=== PATIENT | female | born 1980 | race Caucasian/White ===

== ENCOUNTER 2018-04-24 16:31 | Emergency (ER) | payer OTHER ==
[~2018-04-24] VITALS: Ht 170.2 cm; Wt 109.0 kg
[2018-04-24 16:36] VITALS: PULSE 100; RESP 18; TEMP 98.2; O2SAT 100
[2018-04-24] MEDS ORDERED: HYDR25TA5 PO (17:09)
--- NOTE | 2018-04-24 17:09 | PD ---
HPI Chief Complaint: Cold / Flu Symptoms Time Seen by Provider: 17:05 Travel History International Travel<30 days: No Contact w/Intl Traveler<30days: No Traveled to known affect area: No History of Present Illness HPI 37-year-old female presents emergency department for evaluation of chest pain and shortness of breath since 6 AM this morning. Patient states she has had one bout of coughing but otherwise has had no cough throughout the day. She reports a tightness and moderate pain with inspiration. She denies any fever or chills. The pain does not radiate anywhere. She has no nausea, vomiting, lightheadedness, diaphoresis. Patient denies any history of PE or DVT. She has not had any long travel. She is not currently on control. She does not smoke tobacco cigarettes currently. PFS Past Medical History Cancer: Yes (THROID CANCER ) Hypertension: Yes ?: Not Past Surgical History Section: Yes (X2) Other Surgery: Yes (THYROIDECTOMY) Social History Alcohol Use: Yes (OCCASSIONALLY) Tobacco Use: No Substance Use: No Allergies-Medications (Allergen,Severity, Reaction): Coded Allergies: lisinopril (Verified Allergy, Severe, Anaphylaxis, 04/24/18) Reported Meds & Prescriptions Reported Meds & Active Scripts Active Reported Cytomel (Liothyronine Sodium) 25 Mcg Tab 5 Mcg PO BID Synthroid (Levothyroxine Sodium) 200 Mcg Tab 200 Mcg PO DAILY Hydrochlorothiazide 25 Mg Tab 25 Mg PO DAILY Review of Systems Except as stated in HPI: all other systems reviewed are Neg Physical Exam Narrative GENERAL: Well-nourished female patient, appears in no acute distress. SKIN: Focused skin assessment warm/dry. HEAD: Atraumatic. Normocephalic. EYES: Pupils equal and round. No scleral icterus. No injection or drainage. ENT: No nasal bleeding or discharge. Mucous membranes pink and moist. NECK: Trachea midline. No JVD. CARDIOVASCULAR: Elevated rate and rhythm. No murmur appreciated. RESPIRATORY: No accessory muscle use. Diminished with inspiratory and expiratory wheeze to auscultation. Breath sounds equal bilaterally. GASTROINTESTINAL: Abdomen soft, non-tender, nondistended. Hepatic and splenic margins not palpable. MUSCULOSKELETAL: No obvious deformities. No clubbing. No cyanosis. No edema. NEUROLOGICAL: Awake and alert. No obvious cranial nerve deficits. Motor grossly within normal limits. Normal speech. PSYCHIATRIC: Appropriate mood and affect; insight and judgment normal. Data Data Last Documented VS Vital Signs Date Time Temp Pulse Resp B/P (MAP) Pulse Ox O2 Delivery O2 Flow Rate FiO2 04/24/18 19:25 04/24/18 18:00 97.8 83 20 99 Room Air Orders Orders Electrocardiogram (04/24/18 ) Basic Metabolic Panel (Bmp) (04/24/18 17:08) Ckmb (Isoenzyme) Profile (04/24/18 17:08) Complete Blood Count With Diff (04/24/18 17:08) D-Dimer (04/24/18 17:08) Magnesium (Mg) (04/24/18 17:08) Prothrombin Time / Inr (Pt) (04/24/18 17:08) Act Partial Throm Time (Ptt) (04/24/18 17:08) Troponin I (04/24/18 17:08) Ecg Monitoring (04/24/18 17:08) Bilateral Bp Monitoring (04/24/18 17:08) Iv Access Insert/Monitor (04/24/18 17:08) Oximetry (04/24/18 17:08) Oxygen Administration (04/24/18 17:08) Aspirin Chew (Aspirin Chew) (04/24/18 17:15) Sodium Chloride 0.9% Flush (Ns Flush) (04/24/18 17:15) Chest, Pa & Lat (04/24/18 17:08) Methylprednisolone So Succ Inj (Solumedr (04/24/18 17:15) Albuterol-Ipratropium Neb (Duoneb Neb) (04/24/18 17:15) Ct Pulmonary Angiogram (04/24/18 ) CKMB (04/24/18 17:11) CKMB% (04/24/18 17:11) Iohexol 350 Inj (Omnipaque 350 Inj) (04/24/18 18:50) Ed Discharge Order (04/24/18 19:23) Labs Laboratory Tests Test 04/24/18 17:11 White Blood Count 10.3 TH/MM3 Red Blood Count 4.56 MIL/MM3 Hemoglobin 12.8 GM/DL Hematocrit 37.8 % Mean Corpuscular Volume 83.0 FL Mean Corpuscular Hemoglobin 28.1 PG Mean Corpuscular Hemoglobin Concent 33.8 % Red Cell Distribution Width 14.7 % Platelet Count 390 TH/MM3 Mean Platelet Volume 8.4 FL Neutrophils (%) (Auto) 69.2 % Lymphocytes (%) (Auto) 20.3 % Monocytes (%) (Auto) 7.4 % Eosinophils (%) (Auto) 2.5 % Basophils (%) (Auto) 0.6 % Neutrophils # (Auto) 7.1 TH/MM3 Lymphocytes # (Auto) 2.1 TH/MM3 Monocytes # (Auto) 0.8 TH/MM3 Eosinophils # (Auto) 0.3 TH/MM3 Basophils # (Auto) 0.1 TH/MM3 CBC Comment DIFF FINAL Differential Comment Prothrombin Time 9.8 SEC Prothromb Time International Ratio 1.0 RATIO Activated Partial Thromboplast Time 27.8 SEC D-Dimer Quantitative (PE/DVT) 0.67 MG/L FEU Blood Urea Nitrogen 11 MG/DL Creatinine 1.05 MG/DL Random Glucose 90 MG/DL Calcium Level 8.5 MG/DL Magnesium Level 2.1 MG/DL Sodium Level 138 MEQ/L Potassium Level 3.2 MEQ/L Chloride Level 103 MEQ/L Carbon Dioxide Level 23.3 MEQ/L Anion Gap 12 MEQ/L Estimat Glomerular Filtration Rate 59 ML/MIN Total Creatine Kinase 101 U/L Creatine Kinase MB 0.8 NG/ML Troponin I LESS THAN 0.02 NG/ML MDM Medical Decision Making Medical Screen Exam Complete: Yes Emergency Medical Condition: Yes Medical Record Reviewed: Yes Differential Diagnosis Bronchitis versus esophagitis versus esophageal spasm versus pneumonia versus PE Narrative Course 37-year-old female presents emergency department for evaluation. Patient appears without distress. Vital signs are stable. Patient does have inspiratory and expiratory wheeze. She will be given IV Solu-Medrol and DuoNeb treatment. Laboratory Tests Test 04/24/18 17:11 White Blood Count 10.3 TH/MM3 Red Blood Count 4.56 MIL/MM3 Hemoglobin 12.8 GM/DL Hematocrit 37.8 % Mean Corpuscular Volume 83.0 FL Mean Corpuscular Hemoglobin 28.1 PG Mean Corpuscular Hemoglobin Concent 33.8 % Red Cell Distribution Width 14.7 % Platelet Count 390 TH/MM3 Mean Platelet Volume 8.4 FL Neutrophils (%) (Auto) 69.2 % Lymphocytes (%) (Auto) 20.3 % Monocytes (%) (Auto) 7.4 % Eosinophils (%) (Auto) 2.5 % Basophils (%) (Auto) 0.6 % Neutrophils # (Auto) 7.1 TH/MM3 Lymphocytes # (Auto) 2.1 TH/MM3 Monocytes # (Auto) 0.8 TH/MM3 Eosinophils # (Auto) 0.3 TH/MM3 Basophils # (Auto) 0.1 TH/MM3 CBC Comment DIFF FINAL Differential Comment Prothrombin Time 9.8 SEC Prothromb Time International Ratio 1.0 RATIO Activated Partial Thromboplast Time 27.8 SEC D-Dimer Quantitative (PE/DVT) 0.67 MG/L FEU Blood Urea Nitrogen 11 MG/DL Creatinine 1.05 MG/DL Random Glucose 90 MG/DL Calcium Level 8.5 MG/DL Magnesium Level 2.1 MG/DL Sodium Level 138 MEQ/L Potassium Level 3.2 MEQ/L Chloride Level 103 MEQ/L Carbon Dioxide Level 23.3 MEQ/L Anion Gap 12 MEQ/L Estimat Glomerular Filtration Rate 59 ML/MIN Total Creatine Kinase 101 U/L Creatine Kinase MB 0.8 NG/ML Troponin I LESS THAN 0.02 NG/ML Patient's d-dimer is elevated. CT pulmonary angiogram is ordered. Last Impressions Chest X-Ray 04/24/18 1708 Signed Impressions: CONCLUSION: No active disease. CT Angiography 04/24/18 0000 Signed Impressions: CONCLUSION: 1. Negative for pulmonary embolus. No acute findings. Patient will be discharged home. She will be given short course of oral steroids and pro-air inhaler. She is encouraged to follow-up with primary care provider and return immediately with acute worsening symptoms. Diagnosis Primary Impression: Bronchitis Additional Impression: Costochondral pain Referrals: Primary Care Physician Patient Instructions: Acute Bronchitis (ED), General Instructions Departure Forms: Tests/Procedures, Work Release Enter return to work date: Apr 28, 2018 Additional Instructions: Humidified air may help to alleviate symptoms Follow-up with a primary care provider Return immediately with acute worsening symptoms Med/Other Pt SpecificInfo: Prescription(s) given Scripts Albuterol 8.5 GM Inh (Proair Hfa 8.5 GM Inh) 90 Mcg/Act Aer 2 PUFF INH Q4H Y for SHORTNESS OF BREATH, #1 INHALER 0 Refills 108 mcg/actuation Prov: Karely Alonso 04/24/18 Prednisone (Prednisone) 50 Mg Tab 50 MG PO DAILY for 5 Days, #5 TAB 0 Refills Prov: Karely Alonso 04/24/18 Azithromycin (Zithromax Z-Yair) 250 Mg Dspk 250 MG PO DIRECTED for Infection, #1 DSPK 0 Refills 500 MG (2 tabs) day 1, then 1 tab days 2-5. Prov: Karely Alonso 04/24/18 Disposition: 01 DISCHARGE HOME Condition: Stable Karely Alonso Apr 24, 2018 17:09
[2018-04-24] MEDS ORDERED: LEVO.2 PO (17:10)
[2018-04-24] MEDS ORDERED: LIOT25 PO (17:10)
[2018-04-24 17:13] VITALS: O2SAT 98
[2018-04-24] MEDS: RESP: ALBUTEROL 2.5 MG/IPRATROPIUM 0.5 MG NEB (SCH) INH (17:15)
[2018-04-24] MEDS ORDERED: SODIUM CHLORIDE 0.9% FLUSH 10 ML FLUSH IVF PRN (17:15)
[2018-04-24] MEDS ORDERED: methylPREDNISolone SOD SUCC 125 MG/2 ML VIAL IV PUSH ONE (17:15)
[2018-04-24] MEDS ORDERED: ASPIRIN 81 MG CHEW TAB PO ONE (17:15)
[2018-04-24 17:16] VITALS: BP_SYST 149; BP_SYST 165; BP_DIAS 83; BP_DIAS 96; PULSE 87; RESP 22; O2SAT 98
[2018-04-24 17:42] LABS: AUTOMATED NEUTROPHIL # 7.1 TH/MM3 (1.8-7.7); BASOPHIL # 0.1 TH/MM3 (0-0.2); BASOPHIL % 0.6 % (0.0-2.0); EOSINOPHIL # 0.3 TH/MM3 (0-0.4); EOSINOPHIL % 2.5 % (0.0-4.0); HEMATOCRIT 37.8 % (35.0-46.0); HEMOGLOBIN 12.8 GM/DL (11.6-15.3); LYMPH % 20.3 % (9.0-44.0); LYMPHOCYTE # 2.1 TH/MM3 (1.0-4.8); MEAN CORPUSCULAR HEMOGLOBIN 28.1 PG (27.0-34.0); MEAN CORPUSCULAR HGB CONC 33.8 % (32.0-36.0); MEAN PLATELET VOLUME 8.4 FL (7.0-11.0); MONO % 7.4 % (0.0-8.0); MONOCYTE # 0.8 TH/MM3 (0-0.9); NEUT % 69.2 % (16.0-70.0); PLATELET COUNT 390 TH/MM3 (150-450); RED BLOOD COUNT 4.56 MIL/MM3 (4.00-5.30); RED CELL DISTRIBUTION WIDTH 14.7 % (11.6-17.2); WHITE BLOOD COUNT 10.3 TH/MM3 (4.0-11.0)
[2018-04-24 17:53] LABS: D-DIMER 0.67 MG/L FEU (0.00-0.50); PROTHROMBIN TIME - PATIENT 9.8 SEC (9.8-11.6)
[2018-04-24 18:00] VITALS: BP 135/81; PULSE 83; RESP 20; TEMP 97.8; O2SAT 99
--- NOTE | 2018-04-24 18:10 | RADRPT ---
EXAM DATE: 04/24/2018 5:57 PM EDT AGE/SEX: 37 years / Female INDICATIONS: Chest tightness, shortness of breath starting today CLINICAL DATA: This is the patient's initial encounter. Patient reports that signs and symptoms have been present for 1 day and indicates a pain score of 0/10. MEDICAL/SURGICAL HISTORY: None. None. COMPARISON: No prior exams available for comparison. FINDINGS: PA and lateral views of the chest demonstrate the lungs to be symmetrically aerated without evidence of mass, infiltrate or effusion. The cardiomediastinal contours are unremarkable. Osseous structures are intact. CONCLUSION: No active disease. Electronically signed by: Alexander Olsen MD 04/24/2018 6:09 PM EDT
[2018-04-24 18:32] LABS: BICARBONATE 23.3 MEQ/L (21.0-32.0); BLOOD UREA NITROGEN 11 MG/DL (7-18); CALCIUM 8.5 MG/DL (8.5-10.1); CHLORIDE 103 MEQ/L (98-107); CREATININE 1.05 MG/DL (0.50-1.00); GLOMERULAR FILTRATION RATE 59 ML/MIN (>89); GLUCOSE,RANDOM 90 MG/DL (74-106); MAGNESIUM 2.1 MG/DL (1.5-2.5); SODIUM (NA) 138 MEQ/L (136-145)
[2018-04-24 18:37] LABS: TROPONIN I LESS THAN 0.02 NG/ML (0.02-0.05)
[2018-04-24] MEDS ORDERED: IOHEXOL 350 MG/ML 10 ML VIAL (for RAD DIAG) IVCONTRAST ONE (18:50)
--- NOTE | 2018-04-24 19:14 | RADRPT ---
EXAM DATE: 04/24/2018 7:04 PM EDT AGE/SEX: 37 years / Female INDICATIONS: Chest pain. CLINICAL DATA: This is the patient's initial encounter. Patient reports that signs and symptoms have been present for 1 day and indicates a pain score of 5/10. MEDICAL/SURGICAL HISTORY: Hypertension. Carcinoma, thyroid. Thyroidectomy. RADIATION DOSE: 10.91 CTDI (mGy) COMPARISON: No prior exams available for comparison. TECHNIQUE: Volumetric scanning was performed using a multi-row detector CT scanner during bolus infu adan of 75 ml Omnipaque 350 (iohexol) nonionic water-soluble contrast as a single exam dose. The andrews a was post processed with a variety of visualization algorithms including full volume maximum intensi ty projection and sliding thin slab reformation. Using automated exposure control and adjustment of the mA and/or kV according to patient size, radiation dose was kept as low as reasonably achievable t o obtain optimal diagnostic quality images. FINDINGS: No filling defects to suggest pulmonary embolic disease. There is no pleural or pericardial effusion. No lung consolidation. No adenopathy. No acute findings in the upper abdomen. CONCLUSION: 1. Negative for pulmonary embolus. No acute findings. Electronically signed by: Alexander Olsen MD 04/24/2018 7:13 PM EDT
[2018-04-24] MEDS ORDERED: ZITHTAB PO (19:32)
[2018-04-24] MEDS ORDERED: PRED50 PO (19:32)
[2018-04-24] MEDS ORDERED: ALBUAER3 INH (19:32)
--- NOTE | 2018-04-25 12:37 | EKG ---
Date Performed: 04/24/2018 Time Performed: 16:47:06 PTAGE: 37 years EKG: Sinus rhythm MINIMAL ST DEPRESSION BORDERLINE ECG NO PREVIOUS TRACING DOCTOR: Eliseo Cleveland Interpretating Date/Time 04/25/2018 12:36:03
== END 2018-04-24 19:50 | disposition home or self-care (01) ==
LOC: NEPC 16:31
DX: J40 Bronchitis, not specified as acute or chronic (principal); I10 Essential (primary) hypertension; Z79.899 Other long term (current) drug therapy
CPT/HCPCS: 71046; 71275; 80048; 82550; 82552; 83735; 84484; 85025; 85379; 85610; 85730; 93005; 94640; 94664; 96374; 99285; J2930; Q9967